=== PATIENT | male | born 1965 | race Caucasian/White ===

== ENCOUNTER 2016-10-10 04:37 | Emergency (ER) | payer OTHER ==
[~2016-10-10] VITALS: Ht 188 cm; Wt 117.5 kg
[2016-10-10 06:59] LABS: BASOPHIL % 0.5 % (0-2); PLATELET COUNT 269 x10^3mcL (130-400); RED CELL DISTRIBUTION WIDTH 12.5 % (11.5-14.5)
[2016-10-10 07:25] LABS: CALCIUM 9.1 mg/dL (8.5-10.1); CHLORIDE SERUM 104 mmol/L (98-107); CREATININE SERUM 1.2 mg/dL (0.7-1.3); GFR1 > 60 mL/min; GLUCOSE SERUM 145 mg/dL (74-106); POTASSIUM SERUM 4.6 mmol/L (3.5-5.1); SODIUM SERUM 135 mmol/L (136-145)
[2016-10-10 07:46] VITALS: BP 138/78
== END 2016-10-10 07:48 | disposition home or self-care (01) ==
LOC: ED 04:37
PROVIDERS: Emergency Medicine
DX: L30.9 Dermatitis, unspecified (principal); I10 Essential (primary) hypertension; E78.00 Pure hypercholesterolemia, unspecified; Z79.899 Other long term (current) drug therapy
CPT/HCPCS: 36415; J2930; Q0163

== ENCOUNTER 2016-10-30 04:48 | Emergency (ER) | payer OTHER ==
[~2016-10-30] VITALS: Ht 188 cm; Wt 113.4 kg
[2016-10-30 06:52] VITALS: BP 133/83
== END 2016-10-30 06:52 | disposition home or self-care (01) ==
LOC: ED 04:48
DX: R51 Headache (principal); K59.00 Constipation, unspecified; I10 Essential (primary) hypertension; E78.00 Pure hypercholesterolemia, unspecified
CPT/HCPCS: J1200; J2765